=== PATIENT | female | born 1985 | race Caucasian/White ===

== ENCOUNTER → 2021-06-21 15:10 | Outpatient (CLI) | payer OTHER, SELFPAY | PROVIDERS: PCP Nurse Practitioner Family; Visit Provider Nurse Practitioner | DX: U07.1 COVID-19 (principal) | CPT/HCPCS: C9803; U0003; U0005 ==

== ENCOUNTER → 2021-09-13 16:01 | Outpatient (CLI) | payer OTHER, SELFPAY ==
[2021-09-13 17:23] LABS: Chloride 109 mmol/L (98-107)
[2021-09-13 17:24] LABS: Potassium 4.9 mmoL/L (3.5-5.1); Sodium 138 mmol/L (136-145)
[2021-09-13 17:26] LABS: Alanine Aminotransferase 17 U/L (12-78); Aspartate Amino Transferase 26 U/L (14-36); Blood Urea Nitrogen 11 mg/dl (7-17); Estimated Glomerular Filt Rate 96 ml/min (>60); GFR (African American) 117 ML/MIN (>60)
[2021-09-13 17:27] LABS: Albumin/Globulin Ratio 1.4 (1.1-1.8); Alkaline Phosphatase 58 U/L (38-126); Anion Gap 8.9 mEq/L (5-15); Bilirubin,Total 0.5 mg/dl (0.2-1.3); Calcium 8.6 mg/dl (8.4-10.2); Carbon Dioxide 25 mmol/L (22.0-30.0); Globulin 2.8 g/dL (1.3-3.2); Glucose 85 mg/dl (74-100); Iron 72 ug/dL (37-170); Total Protein,Serum 6.8 g/dl (6.3-8.2)
[2021-09-13 17:36] LABS: Total Iron Binding Capacity 375 ug/dL (265-497)
[2021-09-13 17:44] LABS: T4 (Thyroxine) 7.5 ug/dl (5.53-11.0); Triiodothryronine (T3) Uptake 27 % (23.5-40.5)
[2021-09-13 17:58] LABS: Thyroid Stimulating Hormone 2.13 uIU/mL (0.465-4.68)
[2021-09-13 18:34] LABS: Vitamin B12 209 pg/mL (239-931)
[2021-09-21 19:12] LABS: 1,25 Dihydroxy Vitamin D 33 pg/mL (.); 1,25-Dihydroxy, Vitamin D-2 <10 pg/mL (.); 1,25-Dihydroxy, Vitamin D-3 28 pg/mL (.)
== END ==
PROVIDERS: PCP Nurse Practitioner Family; Visit Provider Nurse Practitioner Psychiatric/Mental Health
DX: Z00.00 Encounter for general adult medical examination without abnormal findings (principal)
CPT/HCPCS: 36415; 80053; 82607; 82652; 83540; 83550; 84436; 84443; 84479

== ENCOUNTER 2022-04-19 14:54 | Emergency (ER) | payer OTHER, SELFPAY ==
[2022-04-19 16:20] VITALS: BP 156/108; PULSE 91; RESP 16; TEMP 37.3; O2SAT 96; BMI 34.9
--- NOTE | 2022-04-19 16:22 | EXP.UTC ---
Discharge Plan Disposition Patient Disposition: Home, Self-Care Condition: Good Prescriptions Prescriptions: New benzonatate [benzonatate] 100 mg capsule 100 mg PO TIDP PRN (Reason: Cough) Qty: 30 0RF ondansetron 4 mg Tablet,Disintegrating 4 mg PO Q8H PRN (Reason: Nausea) Qty: 12 0RF No Action Viibryd 20 mg tablet 20 mg PO DAILY 30 Days Qty: 30 1RF Rx Instructions: must administer with a meal/food Vraylar 1.5 mg capsule 1.5 mg PO DAILY Qty: 30 1RF Latuda 20 mg tablet 20 mg PO BID Qty: 60 1RF Rx Instructions: must administer with food (at least 350 calories) Referrals Follow up/Referrals: Katherine Mercer APRN [Primary Care Provider] - See instructions Activity Restrictions/Add. Instructions Additional Instructions/Restrictions: Drink plenty of fluids. Take tylenol or ibuprofen for pain or fever. Take the medications as directed. Follow up with your regular doctor. GO TO THE ER FOR ANY WORSENING SYMPTOMS Clinical Impressions Clinical Impression: Viral syndrome Stand Alone Forms Stand Alone Forms: Work/School Release Instructions Patient Instructions: DI for Viral Syndrome Discharge ED Provider: Stuart Hanna [facility] General Stated complaint: Cough, fever, sore throat, abdominal pain Time Seen by Provider: 04/19/22 16:21 History of Present Illness Provider Complaint: She states that for the past 3 days she has had worsening sore throat, chills, body aches and a nonproductive cough. Related Data Previous Rx's Medication Instructions Recorded vilazodone 20 mg tablet (Viibryd) 20 mg PO DAILY 30 days #30 tabs 10/28/21 cariprazine 1.5 mg capsule 1.5 mg PO DAILY #30 caps 12/23/21 (Vraylar) lurasidone 20 mg tablet (Latuda) 20 mg PO BID #60 tabs 02/22/22 benzonatate 100 mg capsule 100 mg PO TIDP PRN Cough #30 caps 04/19/22 ondansetron 4 mg disintegrating 4 mg PO Q8H PRN Nausea #12 tabs 04/19/22 tablet Allergies Allergy/AdvReac Type Severity Reaction Status Date / Time No Known Allergies Allergy Verified 04/19/22 16:24 [facility] Medical History Bipolar II disorder Social History Smoking Status: Current every day smoker tobacco type: cigarettes packs per day: 1 alcohol intake: never substance use type: marijuana (every night; this is the only thing that helps her sleep) current occupational status: employed and other Travel in the last 8 weeks: None number of children: 0 ROS Obtained: Yes All systems reviewed & no additional complaints except as documented Constitutional Constitutional: Reports chills and Reports fever(s) Eyes Eyes: Denies eye discharge ENT Ears, Nose, Mouth, and Throat: Reports as per HPI Cardiovascular Cardiovascular: Denies chest pain Respiratory Respiratory: Denies chest congestion and Reports cough Gastrointestinal Gastrointestingal: Reports nausea; Denies abdominal pain, constipation, cramping, diarrhea or vomiting Musculoskeletal Musculoskeletal: Denies arthralgias Integumentary/Breasts Skin/Breast: Denies rash Neurologic Neurologic: Denies paresthesias Physical Exam General General appearance: alert and in no apparent distress Head Head exam: atraumatic, normocephalic and normal inspection Eye Eye exam: Present normal appearance, PERRL and EOMI ENT ENT exam: Present normal exam, normal oropharynx, mucous membranes moist, TM's normal bilaterally and normal external ear exam Neck Neck exam: Present normal inspection, full ROM and trachea midline; Absent meningismus or lymphadenopathy Chest Chest inspection: Present normal inspection and symmetric chest wall rise; Absent tenderness Respiratory Respiratory exam: Present normal lung sounds bilaterally; Absent respiratory distress Cardiovascular Cardiovascular exam: Present regular rate and normal rhythm; Absent JVD Abdominal Exam Abdomina
[2022-04-19 16:28] LABS: UTC Strep Screen (Rapid) Negative (Negative)
[2022-04-19 16:54] LABS: UTC Influenza A Antigen Negative (Negative); UTC Influenza B Antigen Negative (Negative)
[2022-04-19 17:15] VITALS: BP 156/108; PULSE 90; RESP 16; TEMP 37.3
[2022-04-19 17:21] LABS: Adenovirus,PCR Not Detected (NotDetected); Bordetella Pertussis Not Detected (NotDetected); Chlamydophila Pneumoniae, PCR Not Detected (NotDetected); Coronavirus 19, PCR Not Detected (NotDetected); Coronavirus 229E Not Detected (NotDetected); Coronavirus NL63 Not Detected (NotDetected); Coronavirus OC43 Not Detected (NotDetected); Coronovirus HKU1,PCR Not Detected (NotDetected); Human Metapneumovirus Not Detected (NotDetected); Influenza A, PCR Not Detected (NotDetected); Influenza AH1, 2009 Not Detected (NotDetected); Influenza AH1, PCR Not Detected (NotDetected); Influenza AH3,PCR Not Detected (NotDetected); Influenza B, PCR Not Detected (NotDetected); Mycoplasma Pneumoniae, PCR Not Detected (NotDetected); Parainfluenza 1, PCR Not Detected (NotDetected); Parainfluenza 2, PCR Not Detected (NotDetected); Parainfluenza 3, PCR Not Detected (NotDetected); Parainfluenza 4, PCR Not Detected (NotDetected); Respiratory Syncytial Virus Not Detected (NotDetected); Rhinovirus/Enterovirus Not Detected (NotDetected)
== END 2022-04-19 17:18 | disposition home or self-care (01) ==
PROVIDERS: Emergency Provider Nurse Practitioner Family; PCP Nurse Practitioner Family
DX: R05.9 Cough, unspecified (principal); R50.9 Fever, unspecified; J02.9 Acute pharyngitis, unspecified; B34.9 Viral infection, unspecified
CPT/HCPCS: 87581; 87632; 87798; 87804; 87880; 99212; C9803; G0463; U0003; U0005

== ENCOUNTER 2022-10-21 17:31 | Emergency (ER) | payer OTHER, SELFPAY ==
[2022-10-21] VITALS (7 sets, daily range): BP systolic 137–233; BP diastolic 84–127; PULSE 70–109; RESP 16–22; TEMP 36.6–37.1; O2SAT 97–99; BMI 35.7; BMI 35.8
--- NOTE | 2022-10-21 17:44 | EXP.UTC ---
Discharge Plan Disposition Patient Disposition: Still a Patient Condition: Fair Prescriptions Prescriptions: No Action Viibryd 20 mg tablet 20 mg PO DAILY 30 Days Qty: 30 1RF Rx Instructions: must administer with a meal/food Vraylar 1.5 mg capsule 1.5 mg PO DAILY Qty: 30 1RF Latuda 20 mg tablet 20 mg PO BID Qty: 60 1RF Rx Instructions: must administer with food (at least 350 calories) benzonatate [benzonatate] 100 mg capsule 100 mg PO TIDP PRN (Reason: Cough) Qty: 30 0RF ondansetron 4 mg Tablet,Disintegrating 4 mg PO Q8H PRN (Reason: Nausea) Qty: 12 0RF Referrals Follow up/Referrals: Katherine Mercer APRN [Primary Care Provider] - See instructions Clinical Impressions Clinical Impression: Abdominal pain, Dizziness Discharge ED Provider: Stuart Hanna [facility] [place] General Stated complaint: dizzy for 4 days, shakey, elevated bp Time Seen by Provider: 10/21/22 17:44 History of Present Illness Provider Complaint: She states that for the past 4 days she has been very light headed, shaky and dizzy. Her symptoms are worse when she is standing up, but they are present even when she is lying down at times. She also has abdominal pain at times when she is standing. Related Data Previous Rx's Medication Instructions Recorded vilazodone 20 mg tablet (Viibryd) 20 mg PO DAILY 30 days #30 tabs 10/28/21 cariprazine 1.5 mg capsule 1.5 mg PO DAILY #30 caps 12/23/21 (Vraylar) lurasidone 20 mg tablet (Latuda) 20 mg PO BID #60 tabs 02/22/22 benzonatate 100 mg capsule 100 mg PO TIDP PRN Cough #30 caps 04/19/22 ondansetron 4 mg disintegrating 4 mg PO Q8H PRN Nausea #12 tabs 04/19/22 tablet Allergies Allergy/AdvReac Type Severity Reaction Status Date / Time No Known Allergies Allergy Verified 04/19/22 16:24 [facility] Disclaimer: The information contained in this section may have been updated after the patient was seen, as this information can be updated by other users. Medical History Bipolar II disorder Social History Smoking Status: Current every day smoker tobacco type: cigarettes packs per day: 1 alcohol intake: never substance use type: marijuana (every night; this is the only thing that helps her sleep) current occupational status: employed and other Travel in the last 8 weeks: None number of children: 0 ROS Obtained: Yes All systems reviewed & no additional complaints except as documented Constitutional Constitutional: Reports anorexia, Reports chills, Denies fever(s), Reports headache(s) and Reports lethargy Eyes Eyes: Denies change in vision, Denies diplopia and Denies eye discharge ENT Ears, Nose, Mouth, and Throat: Reports disequilibrium, Reports dizziness, Denies otalgia, Reports headache(s) and Denies sore throat Cardiovascular Cardiovascular: Denies chest pain, Reports diaphoresis, Reports lightheadedness and Denies syncope Respiratory Respiratory: Denies shortness of breath, Denies chest congestion, Denies cough, Denies stridor and Denies wheezing Gastrointestinal Gastrointestingal: Reports abdominal pain, diarrhea, nausea and vomiting; Denies cramping, hematochezia or melena Genitourinary Female Genitourinary: Denies dysuria, Denies menorrhagia, Denies urinary frequency, Denies urinary incontinence, Denies urinary hesitancy and Denies urinary urgency Musculoskeletal Musculoskeletal: Reports arthralgias Integumentary/Breasts Skin/Breast: Denies redness and Denies rash Neurologic Neurologic: Reports disequilibrium, Reports dizziness, Reports headache(s), Denies paresthesias and Denies syncope Allergic/Immunologic Allergic/Immunologic: Denies wheezing Physical Exam General General appearance: alert and in no apparent distress Head Head exam: atraumatic, normocephalic and normal inspection Eye Eye exam: Present normal appearance, PERRL and EOMI ENT
--- NOTE | 2022-10-21 18:01 | ECG_ITS ---
APPROVED REPORT Exam: Resting ECG HR:88 bpm ECG Measurements Heart Rate 88 AXES IL 174 P 46 QRSd 110 QRS -9 QT 371 T 31 QTc 416 Conclusion SINUS RHYTHM INCOMPLETE RIGHT BUNDLE BRANCH BLOCK [90+ ms QRS DURATION, TERMINAL R IN V1/V2, 40+ ms S IN I/aVL/V4/V5/V6] BORDERLINE ECG UNCONFIRMED REPORT Electronically signed by : José Luis Yusuf MD 10/22/2022 15:52:37
[2022-10-21 18:28] LABS: POC Glucose,Bedside 94 (70-110)
[2022-10-21 18:59] LABS: Microscopic, Urine URINE MICROSCOPIC (MICROSCOPIC)
[2022-10-21 19:00] LABS: Appearance,Urine CLEAR (Clear); Bilirubin,Urine Negative (Negative); Blood, Urine TRACE-I (Negative); Color,Urine YELLOW (Yellow); Glucose,Urine (UA) Negative (Negative); Ketones,Urine Negative (Negative); Leukocyte Esterase,Urine Negative (Negative); Nitrate,Urine Negative (Negative); Protein,Urine Negative (Negative); Specific Gravity, Urine <= 1.005 (1.005-1.030); Urobilinogen,Urine 0.2 EU/dl (0.2)
--- NOTE | 2022-10-21 19:02 | HMH.EDGENADL ---
Discharge Plan Disposition Patient Disposition: Home, Self-Care Condition: Good Prescriptions Prescriptions: New metoprolol succinate 25 mg tablet extended release 24 hr 25 mg PO DAILY Qty: 30 0RF diazepam [Valium] 2 mg tablet 2 mg PO QID PRN (Reason: diziness) Qty: 14 0RF No Action Viibryd 20 mg tablet 20 mg PO DAILY 30 Days Qty: 30 1RF Rx Instructions: must administer with a meal/food Vraylar 1.5 mg capsule 1.5 mg PO DAILY Qty: 30 1RF Latuda 20 mg tablet 20 mg PO BID Qty: 60 1RF Rx Instructions: must administer with food (at least 350 calories) benzonatate [benzonatate] 100 mg capsule 100 mg PO TIDP PRN (Reason: Cough) Qty: 30 0RF ondansetron 4 mg Tablet,Disintegrating 4 mg PO Q8H PRN (Reason: Nausea) Qty: 12 0RF Referrals Follow up/Referrals: Katherine Mercer APRN [Primary Care Provider] - See instructions Activity Restrictions/Add. Instructions Additional Instructions/Restrictions: Follow-up with your primary care provider this upcoming week for recheck of your blood pressure. Return for worsening dizziness or other concerns. Avoid exertion over the weekend. Avoid abrupt changes in posture as these may make her dizziness worse. Follow-up with a local ear nose and throat doctor if your dizziness does not subside in the next 3 to 5 days. Clinical Impressions Clinical Impression: Dizziness, Hypertension Instructions Patient Instructions: Vertigo Discharge ED Provider: Prince Castillo General Adult HPI General Chief complaint: Dizziness Stated complaint: dizzy for 4 days, shakey, elevated bp Time Seen by Provider: 10/21/22 17:44 Mode of Arrival: Ambulatory Source of Information: Patient Limitations: No Limitations Description of Symptoms (Recalled from ER Triage Doc. by RN): PATIENT C/O DIZZINESS AND SHAKINESS X 4 DAYS. SHE STATES THE DIZZINESS IS OFF AND ON BUT OCCURS MORE FREQUENTLY THAN NOT AND IS WORSE WHEN SHE STANDS UP. SHE ALSO REPORTS 2 EPISODES OF DIARRHEA AND 1 EPISODE OF VOMITING THAT HAVE OCCURED SINCE THIS DIZZINESS STARTED. DENIES CHEST PAIN History of Present Illness HPI narrative: Presents with a 4 or 5-day history of dizziness and lightheadedness. She has had some vomiting as well. She denies abdominal pain. She denies headache or focal neurological symptoms although she does feel somewhat unsteady when she walks. She states the dizziness is worse when she is upright and relieved with remaining supine. Related Data Previous Rx's Medication Instructions Recorded vilazodone 20 mg tablet (Viibryd) 20 mg PO DAILY 30 days #30 tabs 10/28/21 cariprazine 1.5 mg capsule 1.5 mg PO DAILY #30 caps 12/23/21 (Vraylar) lurasidone 20 mg tablet (Latuda) 20 mg PO BID #60 tabs 02/22/22 benzonatate 100 mg capsule 100 mg PO TIDP PRN Cough #30 caps 04/19/22 ondansetron 4 mg disintegrating 4 mg PO Q8H PRN Nausea #12 tabs 04/19/22 tablet diazepam 2 mg tablet (Valium) 2 mg PO QID PRN diziness #14 tabs 10/21/22 metoprolol succinate 25 mg 25 mg PO DAILY #30 tabs 10/21/22 tablet,extended release 24 hr Allergies Allergy/AdvReac Type Severity Reaction Status Date / Time No Known Allergies Allergy Verified 04/19/22 16:24 [facility] Disclaimer: The information contained in this section may have been updated after the patient was seen, as this information can be updated by other users. Medical History Bipolar II disorder Social History Smoking Status: Never smoker alcohol intake: never substance use type: marijuana (every night; this is the only thing that helps her sleep) current occupational status: employed and other Travel in the last 8 weeks: None number of children: 0 ROS Obtained: Yes All systems reviewed & no additional complaints except as documented Physical Exam General General appearance: alert and in no apparent dist
[2022-10-21 19:08] LABS: Basophils # 0.1 K/mm3 (0-0.2); Basophils % 0.9 % (0.1-2.0); Eosinophils # 0.4 K/mm3 (0.0-0.4); Eosinophils % 3.8 % (0.1-12.0); Hematocrit 47.6 % (37.0-47.0); Hemoglobin 15.9 g/dL (12.2-16.2); Lymphocytes # 2.3 K/mm3 (0.7-4.5); Lymphocytes % 23.6 % (10-50); Mean Corpuscular HGB Conc 33.3 g/dL (31.8-35.4); Mean Corpuscular Hemoglobin 29.8 pg (27.0-31.2); Mean Corpuscular Volume 89.3 fl (81-99); Mean Platelet Volume 8.3 fl (7.4-10.4); Monocytes # 0.5 K/mm3 (0.1-1.0); Monocytes % 5.1 % (1.7-9.3); Neutrophils # 6.4 K/mm3 (1.8-7.8); Neutrophils % 66.7 % (37.0-80.0); Platelet Count 444 K/mm3 (142-424); Red Blood Count 5.33 M/mm3 (4.20-5.40); Red Cell Distribution Width 13.8 % (11.5-17.5); White Blood Count 9.6 K/mm3 (4.8-10.8)
[2022-10-21 19:11] LABS: Chloride 103 mmol/L (98-107); Sodium 139 mmol/L (136-145)
[2022-10-21 19:14] LABS: Alanine Aminotransferase 38 U/L (12-78); Albumin Level 4.2 g/dl (3.5-5.0); Albumin/Globulin Ratio 1.6 (1.1-1.8); Alkaline Phosphatase 69 U/L (38-126); Aspartate Amino Transferase 44 U/L (14-36); Bilirubin,Total 0.4 mg/dl (0.2-1.3); Blood Urea Nitrogen 4 mg/dl (7-17); Carbon Dioxide 24 mmol/L (22.0-30.0); Creatinine Clearance Estimated 174 mL/min (50-200); Estimated Glomerular Filt Rate 96 ml/min (>60); GFR (African American) 116 ML/MIN (>60); Globulin 2.7 g/dL (1.3-3.2); Glucose 101 mg/dl (74-100); Total Protein,Serum 6.9 g/dl (6.3-8.2)
[2022-10-21 19:22] LABS: Bacteria,Urine Trace /lpf; RBC,Urine Occasional #/hpf (0-3)
== END 2022-10-21 21:05 | disposition home or self-care (01) ==
LOC: UTC 17:36 → ER 18:39
PROVIDERS: Nurse Practitioner Family; Emergency Provider Emergency Medicine; PCP Nurse Practitioner Family
DX: R42 Dizziness and giddiness (principal); I10 Essential (primary) hypertension; F17.210 Nicotine dependence, cigarettes, uncomplicated
CPT/HCPCS: 80053; 81001; 82962; 85025; 87086; 93005; 96361; 96374; 96375; 99285

== ENCOUNTER 2022-10-23 00:16 | Emergency (ER) | payer OTHER, SELFPAY ==
[2022-10-23 00:18] VITALS: BP 181/96; PULSE 74; RESP 18; TEMP 36.7; O2SAT 98; BMI 35.7
--- NOTE | 2022-10-23 00:25 | ECG_ITS ---
APPROVED REPORT Exam: Resting ECG HR:44 bpm ECG Measurements Heart Rate 44 AXES DC 188 P 44 QRSd 117 QRS 23 QT 450 T 37 QTc 400 Conclusion SINUS BRADYCARDIA INCOMPLETE RIGHT BUNDLE BRANCH BLOCK [90+ ms QRS DURATION, TERMINAL R IN V1/V2, 40+ ms S IN I/aVL/V4/V5/V6] BORDERLINE ECG UNCONFIRMED REPORT Electronically signed by : José Luis Yusuf MD 10/23/2022 21:44:12
--- NOTE | 2022-10-23 00:25 | XR_ITS ---
PROCEDURE INFORMATION: Exam: XR Chest Exam date and time: 10/23/2022 12:54 AM Age: 36 years old Clinical indication: Shortness of breath; Additional info: SOA TECHNIQUE: Imaging protocol: Radiologic exam of the chest. Views: 1 view. COMPARISON: No relevant prior studies available. FINDINGS: Lungs: Unremarkable. No consolidation. Pleural spaces: Unremarkable. No pleural effusion. No pneumothorax. Heart/Mediastinum: Unremarkable. No cardiomegaly. Bones/joints: Unremarkable. Other findings: Cylindrical 18 mm radiodensity overlying the mid chest could be external to the patient. IMPRESSION: 1. No acute cardiopulmonary process. 2. Cylindrical 18 mm radiodensity overlying the mid chest could be external to the patient.
[2022-10-23 00:31] VITALS: BP 183/96; PULSE 60; RESP 18; O2SAT 99
[2022-10-23 00:57] LABS: Basophils # 0.1 K/mm3 (0-0.2); Basophils % 0.6 % (0.1-2.0); Eosinophils # 0.4 K/mm3 (0.0-0.4); Eosinophils % 5.2 % (0.1-12.0); Hematocrit 47.6 % (37.0-47.0); Hemoglobin 15.5 g/dL (12.2-16.2); Lymphocytes # 3.1 K/mm3 (0.7-4.5); Lymphocytes % 37.3 % (10-50); Mean Corpuscular HGB Conc 32.6 g/dL (31.8-35.4); Mean Corpuscular Hemoglobin 29.1 pg (27.0-31.2); Mean Corpuscular Volume 89.3 fl (81-99); Mean Platelet Volume 8.2 fl (7.4-10.4); Monocytes # 0.5 K/mm3 (0.1-1.0); Monocytes % 6.3 % (1.7-9.3); Neutrophils # 4.1 K/mm3 (1.8-7.8); Neutrophils % 50.5 % (37.0-80.0); Platelet Count 408 K/mm3 (142-424); Red Blood Count 5.33 M/mm3 (4.20-5.40); Red Cell Distribution Width 13.7 % (11.5-17.5); White Blood Count 8.2 K/mm3 (4.8-10.8)
[2022-10-23 01:00] VITALS: BP 188/101; PULSE 60; O2SAT 96
[2022-10-23 01:03] LABS: Chloride 103 mmol/L (98-107); Potassium 3.4 mmoL/L (3.5-5.1); Sodium 139 mmol/L (136-145)
[2022-10-23 01:05] LABS: Alanine Aminotransferase 42 U/L (12-78); Aspartate Amino Transferase 44 U/L (14-36); Blood Urea Nitrogen 4 mg/dl (7-17); Creatinine Clearance Estimated 153 mL/min (50-200); Estimated Glomerular Filt Rate 82 ml/min (>60); GFR (African American) 99 ML/MIN (>60)
[2022-10-23 01:06] LABS: Albumin Level 3.9 g/dl (3.5-5.0); Albumin/Globulin Ratio 1.3 (1.1-1.8); Alkaline Phosphatase 73 U/L (38-126); Anion Gap 14.4 mEq/L (5-15); Bilirubin,Total 0.4 mg/dl (0.2-1.3); Calcium 8.7 mg/dl (8.4-10.2); Carbon Dioxide 25 mmol/L (22.0-30.0); Globulin 2.9 g/dL (1.3-3.2); Glucose 99 mg/dl (74-100); Total Protein,Serum 6.8 g/dl (6.3-8.2)
[2022-10-23 01:21] LABS: Troponin I < 0.01 ng/ml (0.00-0.034)
[2022-10-23 02:18] VITALS: BP 137/84; PULSE 64; RESP 18; TEMP 36.7; O2SAT 99
--- NOTE | 2022-10-23 03:06 | HMH.EDGENADL ---
Discharge Plan Disposition Patient Disposition: Home, Self-Care Condition: Good Prescriptions Prescriptions: No Action Viibryd 20 mg tablet 20 mg PO DAILY 30 Days Qty: 30 1RF Rx Instructions: must administer with a meal/food Vraylar 1.5 mg capsule 1.5 mg PO DAILY Qty: 30 1RF Latuda 20 mg tablet 20 mg PO BID Qty: 60 1RF Rx Instructions: must administer with food (at least 350 calories) metoprolol succinate 25 mg tablet extended release 24 hr 25 mg PO DAILY Qty: 30 0RF diazepam [Valium] 2 mg tablet 2 mg PO QID PRN (Reason: diziness) Qty: 14 0RF benzonatate [benzonatate] 100 mg capsule 100 mg PO TIDP PRN (Reason: Cough) Qty: 30 0RF ondansetron 4 mg Tablet,Disintegrating 4 mg PO Q8H PRN (Reason: Nausea) Qty: 12 0RF Referrals Follow up/Referrals: Katherine Mercer APRN [Primary Care Provider] - See instructions Clinical Impressions Clinical Impression: Hypertension Discharge ED Provider: Parker Alexis Adult HPI General Chief complaint: Dizziness Stated complaint: High B/P with nausea Time Seen by Provider: 10/23/22 00:18 Mode of Arrival: Ambulatory Source of Information: Patient Limitations: No Limitations Description of Symptoms (Recalled from ER Triage Doc. by RN): Pt arrives to ED with c/o lightheadedness and high blood pressure. History of Present Illness HPI narrative: This is a very pleasant 36-year-old lady with a past medical history of hypertension, bipolar disorder who presents with a chief complaint of hypertension. Patient was seen in the emergency department about 24 hours ago and received a new diagnosis of hypertension. Was started on 25 mg of metoprolol. States her blood pressure has been elevated to the 180s systolic today. Associated with some nausea as well as headache. When describing the headache it seems to be sinus pressure in the frontal sinuses. She has no chest pain, shortness of breath, flank pain, vision changes, changes in urine output. No numbness weakness or paresthesias. Related Data Previous Rx's Medication Instructions Recorded vilazodone 20 mg tablet (Viibryd) 20 mg PO DAILY 30 days #30 tabs 10/28/21 cariprazine 1.5 mg capsule 1.5 mg PO DAILY #30 caps 12/23/21 (Vraylar) lurasidone 20 mg tablet (Latuda) 20 mg PO BID #60 tabs 02/22/22 benzonatate 100 mg capsule 100 mg PO TIDP PRN Cough #30 caps 04/19/22 ondansetron 4 mg disintegrating 4 mg PO Q8H PRN Nausea #12 tabs 04/19/22 tablet diazepam 2 mg tablet (Valium) 2 mg PO QID PRN diziness #14 tabs 10/21/22 metoprolol succinate 25 mg 25 mg PO DAILY #30 tabs 10/21/22 tablet,extended release 24 hr Allergies Allergy/AdvReac Type Severity Reaction Status Date / Time No Known Allergies Allergy Verified 04/19/22 16:24 [facility] Disclaimer: The information contained in this section may have been updated after the patient was seen, as this information can be updated by other users. Medical History Bipolar II disorder Social History Smoking Status: Current every day smoker tobacco type: cigarettes packs per day: 1 alcohol intake: never substance use type: marijuana (every night; this is the only thing that helps her sleep) current occupational status: employed and other Travel in the last 8 weeks: None number of children: 0 ROS Obtained: Yes All systems reviewed & no additional complaints except as documented Physical Exam General General appearance: alert and in no apparent distress Head Head exam: atraumatic and normocephalic Eye Eye exam: Present normal appearance, PERRL and EOMI ENT ENT exam: Present normal exam Neck Neck exam: Present normal inspection Chest Chest inspection: Present normal inspection Respiratory Respiratory exam: Present normal lung sounds bilaterally Cardiovascular Cardiovascular exam: Present regular rate and no
== END 2022-10-23 02:20 | disposition home or self-care (01) ==
PROVIDERS: Emergency Provider Emergency Medicine; PCP Nurse Practitioner Family
DX: R42 Dizziness and giddiness (principal); R11.0 Nausea; I10 Essential (primary) hypertension; F17.210 Nicotine dependence, cigarettes, uncomplicated
CPT/HCPCS: 71045; 80053; 84484; 85025; 93005; 96374; 96375; 99284; 99285

== ENCOUNTER 2022-10-24 19:14 | Emergency (ER) | payer OTHER, SELFPAY ==
[2022-10-24] VITALS (7 sets, daily range): BP systolic 137–170; BP diastolic 81–116; PULSE 51–79; RESP 16–18; TEMP 36.9; O2SAT 96–98; BMI 34.9
--- NOTE | 2022-10-24 19:17 | XR_ITS ---
PROCEDURE INFORMATION: Exam: XR Chest Exam date and time: 10/24/2022 7:12 PM Age: 36 years old Clinical indication: Other: Irregular blood pressure for 4 days. Patient HX: Irregular blood pressure for 4 days, goes high and low. Became very low today she stated. ; Additional info: Weakness TECHNIQUE: Imaging protocol: Radiologic exam of the chest. Views: 2 views. COMPARISON: CR XR CHEST PORTABLE 10/23/2022 12:54 AM FINDINGS: Lungs: No consolidation. Pleural spaces: No pneumothorax. Heart/Mediastinum: No cardiomegaly. Bones/joints: No acute fracture. IMPRESSION: No acute findings.
--- NOTE | 2022-10-24 19:28 | ECG_ITS ---
APPROVED REPORT Exam: Resting ECG HR:50 bpm ECG Measurements Heart Rate 50 AXES HI 179 P 49 QRSd 104 QRS 20 QT 446 T 57 QTc 420 Conclusion SINUS BRADYCARDIA WITH SINUS ARRHYTHMIA BORDERLINE ECG UNCONFIRMED REPORT Electronically signed by : José Luis Yusuf MD 10/25/2022 22:05:42
[2022-10-24 19:49] LABS: Basophils # 0.1 K/mm3 (0-0.2); Basophils % 0.9 % (0.1-2.0); Eosinophils # 0.3 K/mm3 (0.0-0.4); Eosinophils % 3.8 % (0.1-12.0); Hematocrit 48.8 % (37.0-47.0); Hemoglobin 15.9 g/dL (12.2-16.2); Lymphocytes # 2.5 K/mm3 (0.7-4.5); Lymphocytes % 29.7 % (10-50); Mean Corpuscular HGB Conc 32.7 g/dL (31.8-35.4); Mean Corpuscular Hemoglobin 29.4 pg (27.0-31.2); Mean Corpuscular Volume 89.9 fl (81-99); Mean Platelet Volume 8.4 fl (7.4-10.4); Monocytes # 0.5 K/mm3 (0.1-1.0); Monocytes % 6.3 % (1.7-9.3); Neutrophils # 4.9 K/mm3 (1.8-7.8); Neutrophils % 59.4 % (37.0-80.0); Platelet Count 421 K/mm3 (142-424); Red Blood Count 5.43 M/mm3 (4.20-5.40); Red Cell Distribution Width 13.6 % (11.5-17.5); White Blood Count 8.2 K/mm3 (4.8-10.8)
[2022-10-24 20:00] LABS: Chloride 100 mmol/L (98-107)
[2022-10-24 20:01] LABS: Potassium 3.6 mmoL/L (3.5-5.1); Sodium 137 mmol/L (136-145)
[2022-10-24 20:03] LABS: Alanine Aminotransferase 44 U/L (12-78); Alkaline Phosphatase 73 U/L (38-126); Aspartate Amino Transferase 39 U/L (14-36); Bilirubin,Total 0.4 mg/dl (0.2-1.3); Blood Urea Nitrogen 7 mg/dl (7-17); Creatinine Clearance Estimated 132 mL/min (50-200); Estimated Glomerular Filt Rate 72 ml/min (>60); GFR (African American) 87 ML/MIN (>60)
[2022-10-24 20:04] LABS: Albumin Level 4.1 g/dl (3.5-5.0); Albumin/Globulin Ratio 1.3 (1.1-1.8); Anion Gap 15.6 mEq/L (5-15); Calcium 8.9 mg/dl (8.4-10.2); Carbon Dioxide 25 mmol/L (22.0-30.0); Globulin 3.1 g/dL (1.3-3.2); Glucose 99 mg/dl (74-100); Total Protein,Serum 7.2 g/dl (6.3-8.2)
[2022-10-24 20:16] LABS: Troponin I < 0.01 ng/ml (0.00-0.034)
--- NOTE | 2022-10-24 21:33 | HMH.EDWEAK ---
Discharge Plan Disposition Patient Disposition: Home, Self-Care Condition: Good Prescriptions Prescriptions: New amlodipine [Norvasc] 10 mg tablet 10 mg PO DAILY Qty: 30 0RF No Action Viibryd 20 mg tablet 20 mg PO DAILY 30 Days Qty: 30 1RF Rx Instructions: must administer with a meal/food Vraylar 1.5 mg capsule 1.5 mg PO DAILY Qty: 30 1RF Latuda 20 mg tablet 20 mg PO BID Qty: 60 1RF Rx Instructions: must administer with food (at least 350 calories) metoprolol succinate 25 mg tablet extended release 24 hr 25 mg PO DAILY Qty: 30 0RF diazepam [Valium] 2 mg tablet 2 mg PO QID PRN (Reason: diziness) Qty: 14 0RF benzonatate [benzonatate] 100 mg capsule 100 mg PO TIDP PRN (Reason: Cough) Qty: 30 0RF ondansetron 4 mg Tablet,Disintegrating 4 mg PO Q8H PRN (Reason: Nausea) Qty: 12 0RF Referrals Follow up/Referrals: Katherine Mercer APRN [Primary Care Provider] - See instructions Activity Restrictions/Add. Instructions Additional Instructions/Restrictions: Please stop using metoprolol that is making your heart rate go down. I am writing for Norvasc for your blood pressure. Also referring you to Dr. Williamson for your chest pain Clinical Impressions Clinical Impression: Bradycardia, Hypertension Discharge ED Provider: Irene Hussein HPI General Chief complaint: Weakness Stated complaint: Hypotension Time Seen by Provider: 10/24/22 20:30 Mode of Arrival: EMS Source of Information: Patient Limitations: No Limitations Description of Symptoms (Recalled from ER Triage Doc. by RN): pt has been seen in er twice for high blood pressure. EMS called out for hypotenison. pt c/o light head and dizzy. History of Present Illness HPI Narrative: Patient is a 37 female who is here secondary to her blood pressure yoyoing. Patient stated her blood pressure was really high when she is up and ambulating but when she sits down a lot flat she gets her blood pressure to be low gets lightheaded and dizzy. Patient denies any confusion slurred speech or focal weakness with her. Patient just feels fatigue within her blood pressure goes back and forth. Patient has no chest pain or shortness of breath. MD Complaint: generalized weakness Onset (ago): week(s) Duration: intermittent Location: generalized Migration: none Severity: moderate Relieving factors: none Exacerbating factors: movement Related Data Previous Rx's Medication Instructions Recorded vilazodone 20 mg tablet (Viibryd) 20 mg PO DAILY 30 days #30 tabs 10/28/21 cariprazine 1.5 mg capsule 1.5 mg PO DAILY #30 caps 12/23/21 (Vraylar) lurasidone 20 mg tablet (Latuda) 20 mg PO BID #60 tabs 02/22/22 benzonatate 100 mg capsule 100 mg PO TIDP PRN Cough #30 caps 04/19/22 ondansetron 4 mg disintegrating 4 mg PO Q8H PRN Nausea #12 tabs 04/19/22 tablet diazepam 2 mg tablet (Valium) 2 mg PO QID PRN diziness #14 tabs 10/21/22 metoprolol succinate 25 mg 25 mg PO DAILY #30 tabs 10/21/22 tablet,extended release 24 hr amlodipine 10 mg tablet (Norvasc) 10 mg PO DAILY #30 tabs 10/25/22 Allergies Allergy/AdvReac Type Severity Reaction Status Date / Time No Known Allergies Allergy Verified 04/19/22 16:24 [facility] Disclaimer: The information contained in this section may have been updated after the patient was seen, as this information can be updated by other users. Medical History Bipolar II disorder Social History Smoking Status: Current every day smoker tobacco type: cigarettes packs per day: 1 alcohol intake: never substance use type: marijuana (every night; this is the only thing that helps her sleep) current occupational status: employed and other Travel in the last 8 weeks: None number of children: 0 ROS Obtained: Yes All systems reviewed & no additional complaints except as documen
[2022-10-24 23:45] LABS: Troponin I < 0.01 ng/ml (0.00-0.034)
== END 2022-10-25 00:02 | disposition home or self-care (01) ==
PROVIDERS: Emergency Provider Emergency Medicine; PCP Nurse Practitioner Family
DX: R42 Dizziness and giddiness (principal); R00.1 Bradycardia, unspecified; I10 Essential (primary) hypertension
CPT/HCPCS: 71046; 80053; 84484; 85025; 93005; 99285

== ENCOUNTER → 2023-04-04 14:22 | Outpatient (CLI) | payer BC, SELFPAY ==
[2023-04-04 14:50] LABS: Basophils # 0.1 K/mm3 (0-0.2); Basophils % 0.6 % (0.1-2.0); Eosinophils # 0.5 K/mm3 (0.0-0.4); Eosinophils % 4.7 % (0.1-12.0); Hematocrit 42.9 % (37.0-47.0); Hemoglobin 14.8 g/dL (12.2-16.2); Lymphocytes # 2.6 K/mm3 (0.7-4.5); Lymphocytes % 26.3 % (10-50); Mean Corpuscular HGB Conc 34.4 g/dL (31.8-35.4); Mean Corpuscular Hemoglobin 31.1 pg (27.0-31.2); Mean Corpuscular Volume 90.4 fl (81-99); Mean Platelet Volume 8.6 fl (7.4-10.4); Monocytes # 0.5 K/mm3 (0.1-1.0); Monocytes % 5.4 % (1.7-9.3); Neutrophils # 6.2 K/mm3 (1.8-7.8); Neutrophils % 63.1 % (37.0-80.0); Platelet Count 416 K/mm3 (142-424); Red Blood Count 4.74 M/mm3 (4.20-5.40); Red Cell Distribution Width 13.5 % (11.5-17.5); White Blood Count 9.8 K/mm3 (4.8-10.8)
[2023-04-04 15:41] LABS: Alanine Aminotransferase 20 U/L (12-78); Albumin Level 4.3 g/dl (3.5-5.0); Alkaline Phosphatase 64 U/L (38-126); Anion Gap 14.2 mEq/L (5-15); Aspartate Amino Transferase 24 U/L (14-36); Bilirubin,Direct 0.1 mg/dl (0.0-0.4); Bilirubin,Indirect 0.4 mg/dL (0.0-0.9); Bilirubin,Total 0.5 mg/dl (0.2-1.3); Bilirubin,Unconjugated 0.3 mg/dL (0.0-1.1); Blood Urea Nitrogen 10 mg/dl (7-17); Calcium 9.3 mg/dl (8.4-10.2); Carbon Dioxide 23 mmol/L (22.0-30.0); Chloride 104 mmol/L (98-107); Chol/HDL Ratio 4.9 (1-3.5); Cholesterol 214 mg/dl (140-200); Estimated Glomerular Filt Rate 82 ml/min (>60); GFR (African American) 99 ML/MIN (>60); Glucose 105 mg/dl (74-100); HDL Cholesterol 44 mg/dl (40-60); Potassium 4.2 mmoL/L (3.5-5.1); Sodium 137 mmol/L (136-145); Total Protein,Serum 7.3 g/dl (6.3-8.2); Triglycerides 137 mg/dl (30-150); VLDL Cholesterol 27 mg/dL (0-40)
[2023-04-04 15:52] LABS: Direct LDL Cholesterol 122.83 mg/dL (100-129)
[2023-04-04 15:57] LABS: Free T4 (Free Thyroxine) 1.07 ng/dl (0.78-2.19)
[2023-04-04 16:05] LABS: Triiodothryronine (T3) Uptake 28 % (23.5-40.5)
[2023-04-04 16:06] LABS: Free Thyroxine Index 2.7 ug/dL (5.93-13.13); T4 (Thyroxine) 9.7 ug/dl (5.53-11.0)
[2023-04-04 16:11] LABS: Thyroid Stimulating Hormone 4.55 uIU/mL (0.465-4.68)
== END ==
LOC: LAB 14:26
PROVIDERS: Physician Assistant; PCP Nurse Practitioner Family; Visit Provider Nurse Practitioner
DX: I10 Essential (primary) hypertension (principal); R42 Dizziness and giddiness; Z82.49 Family history of ischemic heart disease and other diseases of the circulatory system; E78.5 Hyperlipidemia, unspecified; F41.9 Anxiety disorder, unspecified; F17.200 Nicotine dependence, unspecified, uncomplicated
CPT/HCPCS: 36415; 80048; 80061; 80076; 83735; 84436; 84439; 84443; 84479; 85025

== ENCOUNTER → 2023-05-02 12:35 | Outpatient (CLI) | payer BC, SELFPAY ==
--- NOTE | 2023-05-02 12:38 | US_ITS ---
FINAL REPORT TECHNIQUE: Limited sonographic images of the thyroid were obtained. CLINICAL HISTORY: Thyroid tenderness, hypothyroidism FINDINGS: The right lobe of the thyroid measures 4.6 x 1.7 x 1.5 cm. There are a couple of tiny hypoechoic nodules measuring up to 3 mm consistent with TI-RADS category 4. The left lobe of the thyroid measures 3.7 x 1.3 x 1.1 cm. No mass or nodule is identified. The isthmus measures 3 mm. IMPRESSION: Tiny right thyroid lobe nodules. No follow-up is required. Reviewed, Interpreted and Dictated by Dom Phan MD Transcribed by Jannie Emery Authenticated and [facility]
== END ==
PROVIDERS: PCP Nurse Practitioner Family; Visit Provider Nurse Practitioner Family
DX: E03.9 Hypothyroidism, unspecified (principal)
CPT/HCPCS: 76536

== ENCOUNTER → 2023-05-05 07:12 | Outpatient (CLI) | payer BC, SELFPAY ==
--- NOTE | 2023-05-05 | CA_ITS ---
APPROVED REPORT Exam: Exercise Treadmill Technologist: May Samson, Ht: 5 ft 5 in Wt: 211 lbs BSA: 2.02 m2 HR: 84 bpm BP: 107/73 mmHg Rhythm: NSR Medical History Medications: Amlodipine,,,,, EnTRESTO,,,,, Stress Test Details Test: David HR Resting HR: 91 bpm Max Heart Rate (APMHR): 185 bpm Max HR Achieved: 160 bpm Target HR (85% APMHR): 157 bpm % of APMHR: 86 Recovery HR: 104 bpm HR response to stress: Normal HR response to stress BP Resting BP: 122.0/81.0 mmHg Max BP: 174.0/80.0 mmHg Recovery BP: 128.0/82.0 mmHg BP response to stress: Normal blood pressure response to stress. ECG Resting ECG: NSR Stress ECG: < 0.[address] depression Arrhythmia: None Recovery ECG: Return to baseline within 3 minutes of recovery Recovery Arrhythmia: None Clinical Exercise duration: 06:00 min Highest Stage Achieved: II Exercise capacity: 7.0 METs Overall Exercise Capacity for Age: Poor Stress ECG Conclusion The patient was able to exercise for a total of 6 minutes, 0 seconds. She achieved a total of 7.0 METS. She has poor exercise capacity compared to age and sex matched peers. She has normal HR and BP response to exercise. Max HR: 160 % of PM: 86% Max BP: 174/80 METs: 7.0 Test stopped due to: SOA, Fatigue Symptoms: No CP. Arrhythmias/Ectopy: None ST-T Changes: Normal ST response to exercise. Conclusion: Normal GXT. Poor exercise tolerance. Myoview images reported separately. Test Summary REST . . . . . . . Sitting REST . . . . . . . Standing REST 04:11 0.0 0.0 91 . 122/ 81 . . Stage 1 01:00 10.0 1.7 116 . . . . Stage 1 02:00 10.0 1.7 128 . . . . Stage 1 03:00 10.0 1.7 135 . 174/ 80 . . Stage 2 01:00 12.0 2.5 146 . . . . Stage 2 . . . . . . . Myoview Injected Stage 2 02:00 12.0 2.5 154 . . . . Stage 2 03:00 12.0 2.5 159 . . . Stop exercise at 06:00 RECOVERY 01:00 0.0 0.0 139 . . . . RECOVERY 02:00 0.0 0.0 118 . . . . RECOVERY 03:00 0.0 0.0 108 . 146/ 85 . . RECOVERY 04:00 0.0 0.0 101 . 132/ 78 . . RECOVERY 05:00 0.0 0.0 104 . 128/ 82 . . RECOVERY 05:28 0.0 0.0 95 . 128/ 82 . . Electronically signed by : Alejandra Hill MD 05/15/2023 12:38:30
--- NOTE | 2023-05-05 07:13 | NM_ITS ---
APPROVED REPORT Exam: Nuclear Stress Test Indication: chest pain..palpitations..fatigue Patient Location: Outpatient Stress Tech: May Díaz MA Tech:LUIS Malone RT(R)(N) Ht: 5 ft 5 in Wt: 211 lbs Bra Size: 38c HR: 91 bpm BP: 122/81 mmHg BSA: 2.02 m2 TID: 1.29 BMI: 35.1 History: chest pain..palpitations..fatigue Procedure: Patient exercised on David protocol 6:00 minutes and sec, resting heart rate 91 bpm, resting blood pressure 122/81 mmHg, with exercise maximum heart rate achived was 160 bpm which is 86 % of the maximum predicted heart rate and blood pressure was 174/80 mmHg. Test was stopped due to fatigue. Patient denied any complaint of chest pain. Patient has exercise capacity, achieved 7.0 METs of workload on treadmill, the blood pressure response to exercise was . Cardiac Stress and Resting SPECT Images: Cardiac Stress and Resting SPECT images were obtained using technetium 99m Myoview 31.6 mCi stress and 10.74 mCi at rest. Resting and stress imaging in supine and prone positions demonstrate no evidence of fixed or reversible perfusion defects. There is increased transient ischemic dilatation ratio (TID 1.29), suggestive of possible multivessel disease or balanced ischemia. Gated imaging demonstrates normal global and regional LV systolic function. LVEF is calculated at 61%. Conclusion: No evidence of fixed or reversible perfusion defects. There is increased transient ischemic dilatation ratio (TID 1.29), suggestive of possible multivessel disease or balanced ischemia. Gated imaging demonstrates normal global and regional LV systolic function. LVEF is calculated at 61%. In the setting of increased TID, but otherwise normal study in a young patient, a non-invasive approach (e.g. CCTA) is recommended to rule out multivessel disease. Electronically signed by : Alejandra Hill MD 05/15/2023 12:40:52
--- NOTE | 2023-05-05 07:48 | CA_ITS ---
APPROVED REPORT EXAM: Comprehensive 2D, Doppler, and color-flow Echocardiogram Otr Flatbed Driver: Nafisa Patino RDCS Ht: 5 ft 5 in Wt: 214lbs BSA: 2.04 BP: 126/84 mmHg Indications: SOA,CP,HTN,SMOKER,FAM HX 2D Dimensions LVOT 1.67 cm (M/F) 1.5-2.5 M-Mode Dimensions RVDd 1.64 cm (0.9-2.6) LA Diam 3.37 cm (1.9-4.0) LVDd 5.39 cm (3.5-5.7) Ao Diam 2.69 cm (2.0-3.7) LVDs 3.71 cm (3.5-5.7) IVSd 0.68 cm (0.6-1.1) PWd 0.82 cm (0.6-1.1) EF (Teich) 58.40% FS 31.20% EDV (Teich) 140.70 mL ESV (Teich) 58.50 mL LV Diastology E Decel Time 150.00 (160-240 msec) E/A Ratio 1.2 MED E' 8.10 (< 7 cm/sec) E'/MED E' Ratio 10.01 (>14) LAT E' 12.90 (<10 cm/sec) E/LAT E' Ratio 6.29 (>14) Mitral Valve MV E Max Siddhartha. 81.00 (40-130 cm/s) MV A Velocity 66.00 (40-130 cm/s) E/A Ratio 1.23 MV Decel. Time 150.00 (160-240 ms) MV PHT 44.00 ms Left Ventricle The left ventricle is normal size. The left ventricular systolic function is normal. The left ventricular ejection fraction is within the normal range. There is normal left ventricular wall thickness. There is normal LV segmental wall motion. The left ventricular diastolic function is normal. LVEF is 55%. Right Ventricle The right ventricle is mildly dilated. The right ventricular systolic function is normal. Atria The left atrium size is normal. The right atrium size is normal. There is no Doppler evidence of interatrial shunt. Aortic Valve The aortic valve opens well. There is no aortic valvular stenosis. No aortic regurgitation is present. Mitral Valve The mitral valve is normal in structure. No evidence of mitral valve stenosis. Trace mitral regurgitation. Tricuspid Valve The tricuspid valve leaflets are thin and pliable. Trace tricuspid regurgitation. There is insufficient TR jet to estimate RVSP. Pulmonic Valve The pulmonary valve is normal in structure. Trace pulmonic regurgitation. Great Vessels The aortic root is normal in size. The ascending aorta is normal in size. IVC is normal in size and collapses >50% with inspiration. Pericardium There is no pericardial effusion. Conclusion Normal biventricular systolic function. Mild RV dilation. No significant valvular stenosis or regurgitation. Electronically signed by : Alejandra Hill MD 05/14/2023 20:40:58
== END ==
LOC: RAD 07:13
PROVIDERS: PCP Nurse Practitioner Family; Visit Provider Nurse Practitioner
DX: I20.9 Angina pectoris, unspecified (principal); R94.31 Abnormal electrocardiogram [ECG] [EKG]; R06.02 Shortness of breath; E78.5 Hyperlipidemia, unspecified; I10 Essential (primary) hypertension; F17.200 Nicotine dependence, unspecified, uncomplicated
CPT/HCPCS: 78452; 93017; 93018; 93306; A9502

== ENCOUNTER 2023-06-08 06:48 | Outpatient (CLI) | payer BC, SELFPAY ==
--- NOTE | 2023-06-08 06:53 | CT_ITS ---
APPROVED REPORT Advertising Photographer: CLINICAL INDICATION Chest Pain TECHNIQUE Image Acquisition: A 128 slice MDCT scanner (Clean Runnera View) was used for data acquisition. A noncontrast coronary calcium scan was performed. A CT attenuation threshold of 130 Hounsfield units (HU) was used for the detection of calcium in contiguous voxels of 1 sq mm in area to be counted as individual lesions. Bolus tracking in the ascending aorta with a threshold of 180 HU was performed. Immediately afterwards, ECG synchronized cardiac CT was then performed from the cardiac base to apex using retrospective gating with ECG tube current modulation. A total of 85 mL of Isovue 370 mg/mL contrast medium was administered at 5 mL/sec followed by a saline flush using a biphasic injection protocol. A tube voltage of 120 KVp was used. The patient received the following medications prior to the cardiac CT. 100 mg of oral metoprolol 0.8 mg of sublingual nitroglycerin The average heart rate at the time of acquisition was 64 bpm and regular. Image Reconstruction Transaxial images were reconstructed at 0.67 mm slide thickness. Data was reviewed interactively on an advanced workstation capable of 2 and 3-dimensional displays in all conventional reconstruction formats, including multiplanar reformations, maximum intensity projections, curved multiplanar reformations, and volume rendered reconstructions. When applicable, selected routine images describing the relevant coronary anatomy and pathology were saved and sent to PACS. Complications None Technical Quality Overall image quality was good. Coronary artery opacification was adequate. Total DLP (Dose-Length Product) is 1309.7 mGy-cm. The reported value represents the total of one or more individual components during the CT acquisition of this date and at this time, and as such, the same value may appear in more than one CT report depending on the interpreting/reporting physicians. COMPARISON None FINDINGS CT Coronary Calcium Scoring LMA (Left Main Artery) = 0 LAD (Left Anterior Descending) = 0 LCX (Left Coronary Circumflex) = 0 RCA (Right Coronary Artery) = 0 Total Calcium Score = 0 using the AJ-130 method. The interpretation of the calcium heart score is based on the following continuum*: 0 = no calcified plaque detected (risk of coronary artery disease is very low ??? less than 5%) 1-10 = calcium detected in extremely minimal levels (risk of coronary diseases is still low ??? less than 10%) 11-100 = mild levels of plaque detected with certainty (mild or minimal narrowing of heart arteries is likely) 101-400 = definite,at least moderate levels of plaque detected (relatively high risk of a heart attack within 3-5 years) >401-999 = extensive levels of plaque detected (high risk of heart attack, high levels of vascular disease are present, high likelihood of at least one significant coronary narrowing) *The calcium heart score quantifies the burden of coronary calcification/plaque in the coronary arteries. The calcium heart score is not able to evaluate the presence or burden of non-calcified (i.e. soft) plaque. There is no identifiable calcification in the aortic valve, mitral annulus or mitral valve, pericardium, or myocardium. Coronary CT Angiography The coronary arterial system is left dominant. Quantitative Stenosis Grading: Left Main (LM): The left main originates normally from the left sinus of Valsalva. The LM bifurcates into the left anterior descending artery and left circumflex artery. The LM is patent with no evidence of atherosclerosis. Left Anterior Descending (LAD) and Diagonal Branches: The LAD gives off 3 diagonal branches. The LAD and its branches are patent with no evidence of atherosclerosis. There is __ evidence of LAD bridge. Ramus-intermedius (RI): The RI is patent. Left Circumflex (LCX) and Obtuse Marginals (OM): The LCX gives off 2 Obtuse Marginal (OM) branches. The LCX gives off a posterior descending artery (PDA). The LCX and its branches are patent with no evidence of atherosclerosis. Right Coronary Artery (RCA): The RCA originates normally from the right sinus of Valsalva. The LCX and its branches are patent with no evidence of atherosclerosis. Non-Coronary Cardiac Findings: Analysis of the left ventricular (LV) structure and function was performed after 3-D reconstruction of the LV from axial images, with user-corrected automatic contouring for assessment of LV volumes and user-defined reconstruction from oblique planes for measurement of 3-D cardiac structure and function. LVEDV: 160 mL LVESV: 63 mL SV: 97 mL LVEF: 60.5% -The left ventricle is normal in size with normal left ventricular systolic function. -There is no left atrial appendage filling defect. Two right pulmonary veins and two left pulmonary veins drain normally into the left atrium. -No pericardial thickening or calcification. -Central and branch pulmonary arteries in the [id number] are unremarkable. -Thoracic aorta within the visualized thoracic aortic-branches in the [id number] is unremarkable. Extracardiac Structures No significant extra-cardiac findings. IMPRESSION -No coronary calcification with an Agatston score = 0 using the AJ-130 method. -No evidence of coronary anomalies. -No evidence of significant flow-limiting atherosclerosis of the coronary arteries. -CAD-RADS 0. Management recommendations per ACC/AHA guidelines*, as clinically appropriate. -No significant non-coronary cardiac findings in the visualized segments of the chest. *Recommendations: CAD RADS 0: Reassurance. Consider non-atherosclerotic causes of chest pain. CAD RADS 1: Consider non-atherosclerotic causes of chest pain. Consider preventive therapy and risk factor modification. CAD RADS 2: Consider non-atherosclerotic causes of chest pain. Consider preventive therapy and risk factor modification, particularly for patients with nonobstructive plaque in multiple segments. CAD RADS 3: Consider further functional testing. Consider symptom-guided anti-ischemic and preventive pharmacotherapy as well as risk factor modification per published guideline statements. CAD RADS 4A: Consider further functional testing or invasive coronary angiography with revascularization per published guideline statements. Consider symptom-guided anti-ischemic and preventive pharmacotherapy as well as risk factor modification per published guideline statements. CAD RADS 4B: Invasive coronary angiography recommended with revascularization per published guideline statements. Consider symptom-guided anti-ischemic and preventive pharmacotherapy as well as risk factor modification per published guideline statements. CAD RADS 5: Consider invasive angiography and/or viability assessment with revascularization per published guideline statements. Consider symptom-guided anti-ischemic and preventive pharmacotherapy as well as risk factor modification per published guideline statements. CRITICAL RESULT None COMMUNICATION Per this written report The coronary and cardiac findings of this CCTA were reviewed, reported, and signed by Javan Hill MD ([facility]) Conclusion Electronically signed by : Alejandra Hill MD 06/08/2023 10:29:26
[2023-06-08 07:03] VITALS: BMI 34.3
[2023-06-08 07:07] VITALS: BP 125/90; PULSE 82; RESP 18; TEMP 36.6; O2SAT 97
[2023-06-08] MEDS: METOPROLOL TARTRATE 50MG TABLET 100 MG PO (07:20)
[2023-06-08 07:34] LABS: Chloride 103 mmol/L (98-107); Sodium 138 mmol/L (136-145)
[2023-06-08 07:35] LABS: Potassium 4.2 mmoL/L (3.5-5.1)
[2023-06-08 07:38] LABS: Anion Gap 11.2 mEq/L (5-15); Blood Urea Nitrogen 11 mg/dl (7-17); Calcium 8.7 mg/dl (8.4-10.2); Carbon Dioxide 28 mmol/L (22.0-30.0); Creatinine Clearance Estimated 141 mL/min (50-200); Estimated Glomerular Filt Rate 82 ml/min (>60); GFR (African American) 99 ML/MIN (>60); Glucose 103 mg/dl (74-100)
[2023-06-08 07:52] LABS: HCG Qualitative, Serum Negative (Negative)
[2023-06-08 08:45] VITALS: BP 133/88; PULSE 57; RESP 18; O2SAT 99
[2023-06-08] MEDS: NITROGLYCERIN 0.4MG SL TABLET 0.800000000000000044 MG SL (08:45)
[2023-06-08 08:50] VITALS: BP 102/69; PULSE 59; RESP 18; O2SAT 99
[2023-06-08] MEDS: 0.9 % SODIUM CHLORIDE 50 ML VIAL IV (08:59)
[2023-06-08] MEDS: IOPAMIDOL-370 (76%);100ML BOTTLE 85 ML IV (08:59)
[2023-06-08 09:00] VITALS: BP 112/71; PULSE 67; RESP 18; TEMP 36.6; O2SAT 99
--- NOTE | 2023-06-08 09:00 | PC.NURSE ---
Pt arrived to post via W/C from completed CTA. VSS, pt without C/O. Report rec'd from Eli Ayala RN.
[2023-06-08 09:10] VITALS: BP 106/66; PULSE 63; RESP 18; O2SAT 98
[2023-06-08 09:17] VITALS: BP 126/89; PULSE 60; RESP 18; O2SAT 97
== END 2023-06-08 09:18 | disposition home or self-care (01) ==
PROVIDERS: PCP Nurse Practitioner Family; Visit Provider Nurse Practitioner
DX: R94.30 Abnormal result of cardiovascular function study, unspecified (principal); R07.89 Other chest pain; R06.00 Dyspnea, unspecified
CPT/HCPCS: 75571; 75574; 80048; 84703; Q9967

== ENCOUNTER 2023-07-28 10:06 | Outpatient (CLI) | payer BC, SELFPAY ==
[2023-07-28 11:18] LABS: T4 (Thyroxine) 8.7 ug/dl (5.53-11.0)
[2023-07-28 11:51] LABS: Vitamin B12 173 pg/mL (239-931)
[2023-07-28 12:08] LABS: 25-OH Vitamin D, Total < 12.8 ng/mL (30-100)
[2023-07-28 12:33] LABS: Benzodiazepines Screen,Urine Negative ng/ml (<200)
[2023-07-28 12:34] LABS: Amphetamine/Metha Screen,Urine Negative ng/ml (<1000); Barbiturates Screen,Urine Negative ng/ml (<200)
[2023-07-28 12:35] LABS: Cannabinoid Screen,Urine Negative ng/ml (<50)
[2023-07-28 12:36] LABS: Cocaine Screen,Urine Negative ng/ml (<300)
[2023-07-28 12:37] LABS: Opiate Screen,Urine Negative ng/ml (<300)
[2023-07-28 12:38] LABS: Phencyclidine Screen,Urine Negative ng/ml (<25)
[2023-07-28 12:40] LABS: Methadone Screen,Urine Negative ng/ml (<300)
[2023-07-29 08:38] LABS: Triiodothyronine (T3) Free 3.1 pg/mL (2.0-4.4)
== END 2023-07-28 23:59 ==
LOC: LAB.DROPOF 10:06
PROVIDERS: PCP Nurse Practitioner Family; Visit Provider Nurse Practitioner Family
DX: E03.9 Hypothyroidism, unspecified (principal); F41.9 Anxiety disorder, unspecified; E55.9 Vitamin D deficiency, unspecified; E53.8 Deficiency of other specified B group vitamins; Z79.899 Other long term (current) drug therapy
CPT/HCPCS: 36415; 80307; 82306; 82607; 84436; 84443; 84481

== ENCOUNTER 2023-10-25 13:03 | Outpatient (CLI) | payer BC, SELFPAY ==
[2023-10-25 14:42] LABS: Vitamin B12 405 pg/mL (239-931)
[2023-10-25 18:42] LABS: 25-OH Vitamin D, Total 36.2 ng/mL (30-100)
[2023-10-27 19:45] LABS: Intrinsic Factor Abs, Serum 1.1 AU/mL (0.0-1.1)
== END 2023-10-25 23:59 | disposition home or self-care (01) ==
LOC: LAB.DROPOF 13:04
PROVIDERS: PCP Nurse Practitioner Family; Visit Provider Nurse Practitioner Family
DX: R79.89 Other specified abnormal findings of blood chemistry (principal); E53.8 Deficiency of other specified B group vitamins; E66.9 Obesity, unspecified; Z68.39 Body mass index [BMI] 39.0-39.9, adult
CPT/HCPCS: 82306; 82607; 86340

== ENCOUNTER 2024-09-30 15:54 | Outpatient (CLI) | payer MEDICAID, SELFPAY ==
[2024-09-30 16:29] LABS: Basophils # 0.1 K/mm3 (0-0.2); Basophils % 1.1 % (0.1-2.0); Eosinophils # 0.3 K/mm3 (0.0-0.4); Hematocrit 41.3 % (37.0-47.0); Hemoglobin 13.8 g/dL (12.2-16.2); Lymphocytes % 31.5 % (10-50); Mean Corpuscular HGB Conc 33.4 g/dL (31.8-35.4); Mean Corpuscular Hemoglobin 29.6 pg (27.0-31.2); Mean Corpuscular Volume 88.6 fl (81-99); Monocytes # 0.7 K/mm3 (0.1-1.0); Monocytes % 7.6 % (1.7-9.3); Neutrophils # 5.4 K/mm3 (1.8-7.8); Neutrophils % 56.6 % (37.0-80.0); Nucleated Red Blood Cells # 0 10^3/uL; Nucleated Red Blood Cells % 0 %; Platelet Count 429 K/mm3 (142-424); Red Blood Count 4.66 M/mm3 (4.20-5.40); Red Cell Distribution Width-SD 45.5 fL; White Blood Count 9.5 K/mm3 (4.8-10.8)
[2024-09-30 17:58] LABS: Albumin Level 4.1 g/dl (3.5-5.0); Chloride 106 mmol/L (98-107); Potassium 4.1 mmoL/L (3.5-5.1); Sodium 140 mmol/L (136-145)
[2024-09-30 18:01] LABS: Alanine Aminotransferase 19 U/L (12-78); Albumin/Globulin Ratio 1.4 (1.1-1.8); Alkaline Phosphatase 77 U/L (38-126); Anion Gap 16.1 mEq/L (5-15); Aspartate Amino Transferase 23 U/L (14-36); Bilirubin,Total 0.5 mg/dl (0.2-1.3); Blood Urea Nitrogen 7 mg/dl (7-17); Carbon Dioxide 22 mmol/L (22.0-30.0); Estimated Glomerular Filt Rate 95 ml/min (>60); GFR (African American) 115 ML/MIN (>60); Total Protein,Serum 7.1 g/dl (6.3-8.2)
[2024-09-30 18:02] LABS: Glucose 78 mg/dl (74-100)
[2024-09-30 18:30] LABS: Troponin I < 0.01 ng/ml (0.00-0.034)
[2024-09-30 18:32] LABS: Thyroid Stimulating Hormone 1.99 uIU/mL (0.465-4.68)
[2024-09-30 18:36] LABS: Ferritin 34.1 ng/ml (6.24-137)
[2024-10-01 12:42] LABS: Triiodothyronine (T3) Free 3.3 pg/mL (2.0-4.4)
== END 2024-09-30 23:59 | disposition home or self-care (01) ==
LOC: LAB 15:56
PROVIDERS: PCP Nurse Practitioner Family; Visit Provider Nurse Practitioner Family
DX: R79.89 Other specified abnormal findings of blood chemistry (principal); R42 Dizziness and giddiness; R07.89 Other chest pain; E03.9 Hypothyroidism, unspecified; K21.9 Gastro-esophageal reflux disease without esophagitis
CPT/HCPCS: 36415; 80053; 82728; 84443; 84481; 84484; 85025; 85378

== ENCOUNTER 2024-10-04 07:24 | Outpatient (CLI) | payer MEDICAID, SELFPAY ==
--- NOTE | 2024-10-04 07:30 | MR_ITS ---
FINAL REPORT CLINICAL HISTORY: dizziness, headache, x1 month FINDINGS: Multi planar MR imaging was obtained through the brain without contrast. The midline structures appear intact. There is no evidence of Chiari malformation. On T2 and flair axial images the brain parenchyma is homogeneous. On diffusion-weighted images there is no evidence of restricted diffusion. The visualized paranasal sinuses demonstrate lobular mucoperiosteal thickening in the right maxillary sinus consistent with chronic sinusitis. The seventh and eighth nerve root complexes are intact. IMPRESSION: No acute intracranial abnormality. Chronic right maxillary sinusitis. Reviewed, Interpreted and Dictated by Dom Phan MD Transcribed by Lyric Paulino Authenticated and [facility]
== END 2024-10-04 23:59 | disposition home or self-care (01) ==
LOC: RAD 07:25
PROVIDERS: PCP Nurse Practitioner Family; Visit Provider Nurse Practitioner Family
DX: R42 Dizziness and giddiness (principal)
CPT/HCPCS: 70551

== ENCOUNTER 2024-10-18 07:05 | Outpatient (CLI) | payer MEDICAID, SELFPAY ==
--- NOTE | 2024-10-18 07:15 | CT_ITS ---
FINAL REPORT TECHNIQUE: The patient was injected with IV contrast. Axial images were obtained through the chest in a PE protocol. 3-D reconstruction images were also performed. Individualized dose reduction techniques using automated exposure control or adjustment of the MA and/or KV according to patient's size were employed. CLINICAL HISTORY: elevated d-dimer, tightness in chest FINDINGS: Mediastinal vasculature is adequately opacified. No pulmonary artery filling defects are identified to suggest PE. There is no aortic dissection. There is no axillary adenopathy. There is no hilar or mediastinal adenopathy. The heart size is normal. There is no pericardial or pleural effusion. Linear opacity in the inferior lingula is consistent with scar. There is no suspicious pulmonary nodule or infiltrate. Limited images of the upper abdomen show the gallbladder to be surgically absent. There is no acute abnormality in the upper abdomen. IMPRESSION: No pulmonary embolus or dissection. Reviewed, Interpreted and Dictated by Dom Phan MD Transcribed by Lyric Paulino Authenticated and [facility]
[2024-10-18] MEDS: SODIUM CHLORIDE 0.9% 10ML SYR (RAD ONLY) 10 ML IV (07:56)
[2024-10-18] MEDS: 0.9 % SODIUM CHLORIDE 50 ML VIAL IV (07:56)
[2024-10-18] MEDS: IOPAMIDOL-370 (76%);100ML BOTTLE 75 ML IV (07:57)
== END 2024-10-18 23:59 | disposition home or self-care (01) ==
LOC: RAD 07:06
PROVIDERS: Visit Provider Nurse Practitioner Family
DX: R07.89 Other chest pain (principal); R79.89 Other specified abnormal findings of blood chemistry
CPT/HCPCS: 71275; Q9967

== ENCOUNTER 2025-03-03 12:03 | Outpatient (CLI) | payer MEDICAID, SELFPAY ==
[2025-03-03 15:29] LABS: Hepatitis C Ab Qual. W/ RFX NEGATIVE (Negative)
--- OUTSIDE RECORDS SUMMARY | 2025-03-04 11:19 | XMS_ITS | Referral Summary ---
Author Organization [employer] ([place], [place], [place], [place]) Address [address] [place] [address] Care Team Providers Care Concession Supervisor Name Role Phone RuslanNoemytorie KEITH Primary Care Provider [phone] Allergies No known active allergies Medications No known medications Active Problems No known active problems Social History Tobacco Use Types Packs/Day Years Used Date Smoking Tobacco: Never Assessed Family and Community Support Answer Dequan e Recorded Help with Day to Day Activities Not on file 07/08/2023 Feeling Lonely or Isolated Not on file 07/08 Educational Attainment Answer Date Francisco rded Speak language other than Kinyarwanda at home Not on file 07/08/2023 Want help with school or training Not on file 07/08/2023 Substance Use Answer Date Recorded Used prescription meds for non-medical reasons N ot on file 07/08/2023 Used illegal drugs past 12 months Not on file 07/08/2023 Comments Unknown Sex and Gender Information Value Date Recorded Sex Assigned at Not on file Legal Sex Female 3:53 PM CDT Gender Identity Not on file Sexual Orientation Not on file Last Filed Vital Signs Vital Sign Reading Time Taken Comments Blood Pressure 141/75 10/25/2022 9:40 PM EDT Pulse 62 10/25/2022 9:40 PM EDT Temperature - - Respiratory Rate 18 10/25/2022 9:40 PM EDT Oxygen Saturation 98% 10/25/2022 9:40 PM EDT Inhaled Oxygen Concentration - - Weight 93 kg (205 lb) 10/25/2022 5:04 PM EDT Height 165.1 cm (5' 5 ) 10/25/2022 5:04 PM EDT Body Mass Index 34.11 10/25/2022 5:04 PM EDT Plan of Treatment Not on file Insurance [employer] MED[employer] Care Teams Concession Supervisor Relationship Specialty Start Date End Date Katherine Mercer APRN [address] [address] PCP - General Nurse Practitioner 10/25/22
--- OUTSIDE RECORDS SUMMARY | 2025-03-04 11:19 | XMS_ITS | Clinical Summary ---
Author Organization [employer] ([place], [place], [place], [place]) Address [address] [place] [address] Care Team Providers Care Police Department Secretary Name Role Phone MercerNoemytorie KEITH Primary Care Provider [phone] Allergies No known active allergies Medications No [...] Date Francisco rded Speak language other than Estonian at home Not on file 07/08/2023 Want [...] 10/25/2022 5:04 PM EDT Plan of Treatment Health Maintenance Due Date Last Done Comments Depression Screening (12+) 1999 HIV Screening 12/09/2002 Hepatitis C Screening 12/09/2005 DTAP/TDAP/TD VACCINES (1 - Tdap) 12/09/2006 Lipid Panel 2007 Pap Smear 12/09/2008 Tobacco Cessation Counseling and Screening (12+) 10/26/2023 10/25/2022 COVID-19 VACCINE (1 - 2023-2 5 season) 2025 Influenza Vaccine (#1) 2025 Pneumococcal Vaccine: 0-49 Years Aged Out No longer eligible based on patient's age to complete this topic Insurance Care Teams Police Department Secretary Relationship Specialty Start Date End Date Katherine Mercer APRN [address] [address] PCP - General Nurse Practitioner 10/25/22
== END 2025-03-03 23:59 ==
LOC: LAB.DROPOF 03-04 11:03
PROVIDERS: PCP Nurse Practitioner Family; Visit Provider Nurse Practitioner Family
DX: Z11.59 Encounter for screening for other viral diseases (principal); Z11.4 Encounter for screening for human immunodeficiency virus [HIV]
CPT/HCPCS: 86803; 87389